=== PATIENT | female | born 1995 | race Two or more races ===

== ENCOUNTER 2018-05-04 14:55 | Emergency (ER) | payer SELFPAY, OTHER | END 2018-05-04 15:31 | disposition home or self-care (01) | LOC: ER 14:55 | DX: S21.201D Unspecified open wound of right back wall of thorax without penetration into thoracic cavity, subsequent encounter (principal); S61.401D Unspecified open wound of right hand, subsequent encounter; W34.00XD Accidental discharge from unspecified firearms or gun, subsequent encounter | CPT/HCPCS: 99283 ==

== ENCOUNTER 2019-03-03 08:13 | Inpatient (IN) | payer OTHER, SELFPAY ==
[~2019-03-03] VITALS: Ht 162.6 cm; Wt 93.9 kg
[~2019-03-03 08:13] MED LIST: CEPH500T PO
[2019-03-03 08:54] VITALS: BP 118/78
[2019-03-03] MEDS ORDERED: MULT-130 PO (08:56)
[2019-03-03] MEDS ORDERED: AMPICILLIN SODIUM 2 GM in IV NORMAL SALINE 100ML 100 ML IV ONE (09:00)
[2019-03-03] MEDS ORDERED: 0.9 % SODIUM CHLORIDE 10 ML DISP.SYRIN. IV PRN ×2 (09:00→12:15)
[2019-03-03] MEDS ORDERED: TERBUTALINE 1 MG/ML VIAL. SQ PRN (09:00)
[2019-03-03] MEDS ORDERED: LIDOCAINE 1% PF 30 ML VIAL. INJ PRN (09:00)
[2019-03-03] MEDS ORDERED: NALBUPHINE 10 MG/ML AMPUL. IV PRN ×2 (09:00→10:00)
[2019-03-03] MEDS ORDERED: fentaNYL PF VIAL 100 MCG/2 ML VIAL IV PRN ×2 (09:00)
[2019-03-03] MEDS ORDERED: ONDANSETRON PF 4 MG/2 ML VIAL. IV PRN ×2 (09:00→10:00)
[2019-03-03] MEDS ORDERED: BUTORPHANOL 2 MG/ML VIAL. IV PRN ×2 (09:00)
[2019-03-03] MEDS ORDERED: OXYTOCIN 30 UNIT/500 ML PREMIX 500 ML IV PRN ×2 (09:00→12:15)
[2019-03-03] MEDS: IV RINGERS,LACTATED 1000ML 1,000 ML IV SCH ×2 (09:07→10:16)
[2019-03-03 09:32] LABS: BASO % 0 % (0-3); EOS % 0 % (0-3); HEMATOCRIT 35.6 % (36.0-47.0); HEMOGLOBIN 11.5 g/dL (12.0-15.5); LYMPH # 1.2 x10^3/uL (1.0-4.8); LYMPH % 11 % (24-48); MEAN CORPUSCULAR HEMOGLOBIN 25 pg (25-35); MEAN CORPUSCULAR HGB CONC 32 g/dL (31-37); MEAN CORPUSCULAR VOLUME 76 fL (79-100); MONO # 0.3 x10^3/uL (0.0-1.1); MONO % 3 % (0-9); NEUT # 9.5 x10^3uL (1.8-7.7); NEUT % 86 % (31-73); PLATELET COUNT 196 x10^3/uL (140-400); RED CELL DISTRIBUTION WIDTH 16.4 % (11.5-14.5)
[2019-03-03] MEDS ORDERED: IV RINGERS,LACTATED 1000ML 1,000 ML IV SCH (09:53)
[2019-03-03] MEDS ORDERED: L&D EPIDURAL SYRINGE 50 ML EPID PRN (10:00)
[2019-03-03] MEDS ORDERED: BUPIVACAINE MPF 0.25% 30 ML VIAL. EPID PRN (10:00)
[2019-03-03] MEDS ORDERED: ROPIVacaine 0.2% IN 0.9%NACL PF 40 MG/20 ML DISP.SYRIN. EPID PRN (10:00)
[2019-03-03] MEDS ORDERED: IV RINGERS,LACTATED 500ML 500 ML IV PRN (10:00)
[2019-03-03] MEDS ORDERED: PROCHLORPERAZINE 10 MG/2 ML VIAL. IV PRN (10:00)
[2019-03-03] MEDS ORDERED: NALOXONE 0.4 MG/ML VIAL. IV PRN (10:00)
[2019-03-03] MEDS ORDERED: ePHEDrine PF IN SALINE 50 MG/10 ML SYRINGE. IV PRN (10:00)
[2019-03-03] MEDS ORDERED: fentaNYL PF VIAL 100 MCG/2 ML VIAL EPI PRN (10:00)
[2019-03-03] MEDS ORDERED: ATROPINE 0.5 MG/5 ML DISP.SYRINGE. IV PRN (10:00)
[2019-03-03] MEDS ORDERED: diphenhydrAMINE 50 MG/ML VIAL IV PRN (10:00)
[2019-03-03] MEDS ORDERED: PHENYLEPHRINE in 0.9% NACL PF 1 MG/10 ML SYRINGE. IV PRN (10:00)
[2019-03-03 11:50] LABS: BILIRUBIN,URINE NEGATIVE (NEG); CLARITY,URINE CLEAR; NITRITE,URINE NEGATIVE (NEG); PROTEIN,URINE 30 mg/dL (NEG-TRACE)
[2019-03-03 11:57] LABS: BARBITURATES NEG (NEG); BENZODIAZEPINES NEG (NEG); COCAINE NEG (NEG); METHADONE NEG (NEG); OPIATES NEG (NEG); PHENCYCLIDINE NEG (NEG)
[2019-03-03 11:58] LABS: AMPHETAMINE/METHAMPHETAMINE NEG (NEG)
[2019-03-03 12:00] LABS: CANNABINOIDS POS (NEG)
[2019-03-03 12:07] LABS: COLOR,URINE YELLOW
[2019-03-03 12:08] LABS: BACTERIA,URINE FEW /HPF (0-FEW); SQUAMOUS EPITHELIAL CELL,UR FEW /LPF
[2019-03-03 12:15] LABS: % BANDS 9 % (0-9); % MONOS 2 % (0-10)
[2019-03-03] MEDS ORDERED: BENZOCAINE 20% TOPICAL AEROSOL SPRAY 57GM CAN. TP PRN (12:15)
[2019-03-03] MEDS ORDERED: oxyCODONE/APAP 5/325 1 TAB TABLET PO PRN (12:15)
[2019-03-03] MEDS ORDERED: diphenhydrAMINE HCL 25 MG CAPSULE PO PRN (12:15)
[2019-03-03] MEDS ORDERED: ACETAMINOPHEN 325 MG TABLET. PO PRN (12:15)
[2019-03-03] MEDS ORDERED: PHENYLEPH/MINERAL OIL/PETROLAT RECTAL OINTMENT 28GM TUBE. RC PRN (12:15)
[2019-03-03] MEDS ORDERED: HYDROCORTISONE 1% TOPICAL OINTMENT 30GM TUBE. TP PRN (12:15)
[2019-03-03] MEDS ORDERED: SIMETHICONE 80 MG TAB.CHEW PO PRN (12:15)
[2019-03-03] MEDS ORDERED: MMR per PROTOCOL. MC PRN (12:15)
[2019-03-03] MEDS ORDERED: ZOLPIDEM 5 MG TABLET. PO PRN (12:15)
[2019-03-03] MEDS ORDERED: MAG HYDROX/ALUMINUM HYD/SIMETH 30 ML ORAL.SUSP PO PRN (12:15)
[2019-03-03 12:16] LABS: % LYMPHS 8 % (24-48); % SEGS 81 % (35-66); PLT ESTIMATE ADEQUATE (ADEQUATE)
[2019-03-03 12:17] LABS: ANISOCYTOSIS SLIGHT; MICROCYTOSIS SLIGHT; POLYCHROMASIA PRESENT
[2019-03-03] MEDS: AMPICILLIN SODIUM 1 GM in IV NORMAL SALINE 50ML 50 ML IV SCH ×2 (12:28→17:00)
--- NOTE | 2019-03-03 13:28 | OP ---
DATE OF SURGERY: 03/03/2019 This patient is a 23-year-old female who is a 2, para 1, 38 weeks' , comes into the hospital with a history of having contractions. At the time of admission to the hospital, cervix dilated to 3 cm, membranes intact, and the patient in active labor. She did make a good progress of labor, had labor epidural block, and then, she got to complete dilatation, had a spontaneous vaginal delivery. A live male was delivered at 12:50 hours on 03/03/2019 with the score of 8, 9 and 9 without any problem. Cord was clamped and cut. Cord blood was taken. Placenta removed spontaneous. No hemorrhage noted. She did receive Pitocin after delivery of the placenta. Estimated blood loss about 100 mL. Small superficial tear in the perineum sutured with 2-0 chromic catgut sutures without any problem. Mother tolerated the delivery well. No complications at this time. Baby is referred to driver license examiner for further care and treatment. CHAVEZ QUEEN MD DR: CALVIN/emily JOB#: [id number] / [id number]
[2019-03-03] MEDS: IBUPROFEN 400 MG TABLET. PO PRN (15:22)
[2019-03-03 15:55] VITALS: BP 102/56
[2019-03-03 16:53] VITALS: BP 93/43
[2019-03-03] MEDS: IBUPROFEN 200 MG TABLET. PO SCH (18:00)
[2019-03-03 19:45] VITALS: BP 98/49
[2019-03-04 05:00] VITALS: BP 106/59
[2019-03-04] MEDS: IBUPROFEN 400 MG TABLET. PO PRN ×2 (05:53→15:38)
[2019-03-04] MEDS: DOCUSATE SODIUM 100 MG CAPSULE. PO PRN (05:53)
[2019-03-04] MEDS: IBUPROFEN 200 MG TABLET. PO SCH ×2 (06:00)
[2019-03-04] MEDS ORDERED: FERROUS SULFATE 325 MG TABLET. PO SCH (08:00)
--- NOTE | 2019-03-04 10:39 | PDOC ---
GENERAL General: Vital signs stable Doing ok. VITAL SIGNS Vital Signs: Vital Signs Date Time Temp Pulse Resp B/P (MAP) Pulse Ox O2 Delivery O2 Flow Rate FiO2 03/04/19 05:00 97.5 78 106/59 (75) 99 Room Air 97.5 03/03/19 19:45 16 I & O I & O Intake and Output 03/04/19 07:00 Intake Total 800 ml Balance 800 ml Intake Oral 800 ml Tube Feeding 0 ml # Voids 2 ALLERGIES Allergies: Allergies Coded Allergies Type Severity Reaction Last Updated Verified No Known Drug Allergies 02/12/14 No MEDS Medications: Current Medications Medications (Trade) Dose Ordered Sig/Elvis Start Time Stop Time Status Last Admin Dose Admin Acetaminophen (Tylenol) 650 mg PRN Q6HRS PRN 03/03/19 12:15 Al Hydroxide/Mg Hydroxide (Mylanta Plus Xs) 30 ml PRN Q4HRS PRN 03/03/19 12:15 Ampicillin Sodium 1 gm/Sodium Chloride 50 ml @ 100 mls/hr Q4H 03/03/19 13:00 03/03/19 19:12 DC 03/03/19 12:28 100 MLS/HR Ampicillin Sodium 2 gm/Sodium Chloride 100 ml @ 200 mls/hr 1X ONCE 03/03/19 09:00 03/03/19 19:12 DC 03/03/19 09:19 200 MLS/HR Atropine Sulfate (ATROPINE 0.5mg SYRINGE) 0.4 mg PRN Q2MIN PRN 03/03/19 10:00 Benzocaine (Americaine) 1 spray PRN QID PRN 03/03/19 12:15 Bupivacaine HCl (Sensorcaine Mpf 0.25%) 10 ml PRN 1X PRN 03/03/19 10:00 03/04/19 09:59 DC Butorphanol Tartrate (Stadol) 2 mg PRN Q1HR PRN 03/03/19 09:00 Diphenhydramine HCl (Benadryl) 25 mg PRN Q6HRS PRN 03/03/19 12:15 Docusate Sodium (Colace) 100 mg PRN BID PRN 03/03/19 12:15 03/04/19 05:53 100 MG Ephedrine Sulfate (ePHEDrine PF IN SALINE SYRINGE) 10 mg PRN Q2MIN PRN 03/03/19 10:00 Fentanyl Citrate (Fentanyl 2ml Vial) 100 mcg PRN 1X PRN 03/03/19 10:00 03/04/19 09:59 DC Ferrous Sulfate (Feosol) 325 mg BIDWMEALS 03/04/19 08:00 Hydrocortisone (Cortaid) 1 lili PRN QID PRN 03/03/19 12:15 Ibuprofen (Motrin) 600 mg Q6HRS 03/03/19 18:00 Info (Do NOT chart on this placeholder) 1 ea 1X PRN PRN 03/03/19 12:15 Lidocaine HCl (Xylocaine 1% Pf 30ml Vial) 30 ml 1X PRN PRN 03/03/19 09:00 03/05/19 08:59 Magnesium Hydroxide (Milk Of Magnesia) 2,400 mg PRN DAILY PRN 03/03/19 12:15 Nalbuphine HCl (Nubain) 2.5 mg PRN Q2HR PRN 03/03/19 10:00 Naloxone HCl (Narcan) 0.04 mg PRN Q1MIN PRN 03/03/19 10:00 Ondansetron HCl (Zofran) 4 mg PRN Q6HRS PRN 03/03/19 10:00 Cancel Oxycodone/ Acetaminophen (Percocet 5/325) 2 tab PRN Q4HRS PRN 03/03/19 12:15 Oxytocin/Sodium Chloride 500 ml @ 62.5 mls/hr CONT PRN 03/03/19 12:15 03/03/19 20:14 DC 03/03/19 12:16 62.5 MLS/HR Phenyleph/Shark Oil/Min Oil/Petrol (Preparation H) 1 lili PRN QID PRN 03/03/19 12:15 Phenylephrine HCl (PHENYLEPHRINE in 0.9% NACL PF) 0.05 mg PRN Q2MIN PRN 03/03/19 10:00 Prochlorperazine Edisylate (Compazine) 5 mg PRN Q6HRS PRN 03/03/19 10:00 Ringer's Solution 500 ml @ 500 mls/hr 1X PRN PRN 03/03/19 10:00 03/04/19 09:59 DC Ropivacaine/ Fentanyl/NS 50 ml @ 14 mls/hr CONT PRN 03/03/19 10:00 03/03/19 10:25 14 MLS/HR Ropivacaine/ Sodium Chloride (ROPIVacaine 0.2% - 0.9%NACL PF) 40 mg 1X PRN PRN 03/03/19 10:00 03/04/19 09:53 DC Simethicone (Gas-X) 80 mg PRN AFTMEALHC PRN 03/03/19 12:15 Sodium Chloride (Normal Saline Flush) 10 ml QSHIFT PRN 03/03/19 12:15 Terbutaline Sulfate (Brethine) 0.25 mg 1X PRN PRN 03/03/19 09:00 03/04/19 08:59 DC Zolpidem Tartrate (Ambien) 5 mg PRN QHS PRN 03/03/19 12:15 LAB Lab: Laboratory Tests Test 03/03/19 11:35 03/04/19 06:11 Urine Collection Type U cath Urine Color Yellow Urine Clarity Clear Urine pH 7.0 Urine Specific [place] 1.025 Urine Protein 30 mg/dL (NEG-TRACE) Urine Glucose (UA) Negative mg/dL (NEG) Urine Ketones (Stick) >=80 mg/dL (NEG) Urine Blood Negative (NEG) Urine Nitrite Negative (NEG) Urine Bilirubin Negative (NEG) Urine Urobilinogen Dipstick 1.0 mg/dL (0.2 mg/dL) Urine Leukocyte Esterase Negative (NEG) Urine RBC 1-2 /HPF (0-2) Urine WBC 1-4 /HPF (0-4) Urine Squamous Epithelial Cells Few /LPF Urine Bacteria Few /HPF (0-FEW) Urine Mucus Marked /LPF Urine Opiates Screen Neg (NEG) Urine Methadone Screen Neg (NEG) Urine Barbiturates Neg (NEG) Urine Phencyclidine Screen Neg (NEG) Urine Amphetamine/Methamphetamine Neg (NEG) Urine Benzodiazepines Screen Neg (NEG) Urine Cocaine Screen Neg (NEG) Urine Cannabinoids Screen Pos (NEG) Urine Ethyl Alcohol Neg (NEG) Hematocrit 30.3 % (36.0-47.0) ASSESSMENT & PLAN A&P Plan dismissal in AM. Mom bottle feeding the Baby. CHAVEZ QUEEN MD March 04, 2019 10:39
[2019-03-04 11:10] VITALS: BP 101/62
[2019-03-04] MEDS: MAGNESIUM HYDROXIDE 2,400 MG/30 ML ORAL.SUSP. PO PRN (12:23)
[2019-03-04 16:38] VITALS: BP 107/73
[2019-03-04 22:21] VITALS: BP 103/69
[2019-03-05] MEDS: DOCUSATE SODIUM 100 MG CAPSULE. PO PRN (06:07)
[2019-03-05] MEDS: MAGNESIUM HYDROXIDE 2,400 MG/30 ML ORAL.SUSP. PO PRN (06:07)
[2019-03-05] MEDS: IBUPROFEN 400 MG TABLET. PO PRN (06:08)
[2019-03-05 06:12] VITALS: BP 102/68
--- NOTE | 2019-03-05 10:49 | PDOC ---
GENERAL General: Patient doing well Likes to go home VITAL SIGNS Vital Signs: Vital Signs Date Time Temp Pulse Resp B/P (MAP) Pulse Ox O2 Delivery O2 Flow Rate FiO2 03/05/19 06:12 97.7 60 18 102/68 (79) 97 Room Air 97.7 I & O I & O Intake and Output 03/05/19 07:00 Intake Total 1200 ml Balance 1200 ml Intake Oral 1200 ml # Voids 6 ALLERGIES Allergies: Allergies Coded Allergies Type Severity Reaction Last Updated Verified No Known Drug Allergies 02/12/14 No MEDS Medications: Current Medications Medications (Trade) Dose Ordered Sig/Elvis Start Time Stop Time Status Last Admin Dose Admin Acetaminophen (Tylenol) 650 mg PRN Q6HRS PRN 03/03/19 12:15 Al Hydroxide/Mg Hydroxide (Mylanta Plus Xs) 30 ml PRN Q4HRS PRN 03/03/19 12:15 Ampicillin Sodium 1 gm/Sodium Chloride 50 ml @ 100 mls/hr Q4H 03/03/19 13:00 03/03/19 19:12 DC 03/03/19 12:28 100 MLS/HR Ampicillin Sodium 2 gm/Sodium Chloride 100 ml @ 200 mls/hr 1X ONCE 03/03/19 09:00 03/03/19 19:12 DC 03/03/19 09:19 200 MLS/HR Atropine Sulfate (ATROPINE 0.5mg SYRINGE) 0.4 mg PRN Q2MIN PRN 03/03/19 10:00 03/04/19 12:07 DC Benzocaine (Americaine) 1 spray PRN QID PRN 03/03/19 12:15 Bupivacaine HCl (Sensorcaine Mpf 0.25%) 10 ml PRN 1X PRN 03/03/19 10:00 03/04/19 09:59 DC Butorphanol Tartrate (Stadol) 2 mg PRN Q1HR PRN 03/03/19 09:00 03/04/19 12:07 DC Diphenhydramine HCl (Benadryl) 25 mg PRN Q6HRS PRN 03/03/19 12:15 Docusate Sodium (Colace) 100 mg PRN BID PRN 03/03/19 12:15 03/05/19 06:07 100 MG Ephedrine Sulfate (ePHEDrine PF IN SALINE SYRINGE) 10 mg PRN Q2MIN PRN 03/03/19 10:00 03/04/19 12:07 DC Fentanyl Citrate (Fentanyl 2ml Vial) 100 mcg PRN 1X PRN 03/03/19 10:00 03/04/19 09:59 DC Ferrous Sulfate (Feosol) 325 mg BIDWMEALS 03/04/19 08:00 03/04/19 12:07 DC Hydrocortisone (Cortaid) 1 lili PRN QID PRN 03/03/19 12:15 Ibuprofen (Motrin) 600 mg Q6HRS 03/03/19 18:00 Info (Do NOT chart on this placeholder) 1 ea 1X PRN PRN 03/03/19 12:15 03/04/19 12:07 DC Lidocaine HCl (Xylocaine 1% Pf 30ml Vial) 30 ml 1X PRN PRN 03/03/19 09:00 03/04/19 12:07 DC Magnesium Hydroxide (Milk Of Magnesia) 2,400 mg PRN DAILY PRN 03/03/19 12:15 03/05/19 06:07 2,400 MG Nalbuphine HCl (Nubain) 2.5 mg PRN Q2HR PRN 03/03/19 10:00 03/04/19 12:07 DC Naloxone HCl (Narcan) 0.04 mg PRN Q1MIN PRN 03/03/19 10:00 03/04/19 12:07 DC Ondansetron HCl (Zofran) 4 mg PRN Q6HRS PRN 03/03/19 10:00 Cancel Oxycodone/ Acetaminophen (Percocet 5/325) 2 tab PRN Q4HRS PRN 03/03/19 12:15 Oxytocin/Sodium Chloride 500 ml @ 62.5 mls/hr CONT PRN 03/03/19 12:15 03/03/19 20:14 DC 03/03/19 12:16 62.5 MLS/HR Phenyleph/Shark Oil/Min Oil/Petrol (Preparation H) 1 lili PRN QID PRN 03/03/19 12:15 Phenylephrine HCl (PHENYLEPHRINE in 0.9% NACL PF) 0.05 mg PRN Q2MIN PRN 03/03/19 10:00 03/04/19 12:07 DC Prochlorperazine Edisylate (Compazine) 5 mg PRN Q6HRS PRN 03/03/19 10:00 03/04/19 12:07 DC Ringer's Solution 500 ml @ 500 mls/hr 1X PRN PRN 03/03/19 10:00 03/04/19 09:59 DC Ropivacaine/ Fentanyl/NS 50 ml @ 14 mls/hr CONT PRN 03/03/19 10:00 03/04/19 12:07 DC 03/03/19 10:25 14 MLS/HR Ropivacaine/ Sodium Chloride (ROPIVacaine 0.2% - 0.9%NACL PF) 40 mg 1X PRN PRN 03/03/19 10:00 03/04/19 09:53 DC Simethicone (Gas-X) 80 mg PRN AFTMEALHC PRN 03/03/19 12:15 Sodium Chloride (Normal Saline Flush) 10 ml QSHIFT PRN 03/03/19 12:15 03/04/19 12:07 DC Terbutaline Sulfate (Brethine) 0.25 mg 1X PRN PRN 03/03/19 09:00 03/04/19 08:59 DC Zolpidem Tartrate (Ambien) 5 mg PRN QHS PRN 03/03/19 12:15 ASSESSMENT & PLAN A&P Patient can go home Return to office in 6 weeks. CHAVEZ QUEEN MD March 05, 2019 10:49
[2019-03-05 11:12] VITALS: BP 109/65
--- NOTE | 2019-03-05 11:40 | NUR ---
Discharge Note: Pt. denies questions or needs at this time. Pt. and significant other educated on car seat strap tightening, demonstrated proper use. Pt. and family escorted by Charlotte Monroy RN to vehicle with NB in car seat and belongings present. NB on car seat base in back seat of vehicle, rear facing. Pt. discharged home with family and NB. Charlotte Monroy RN
--- NOTE | 2019-03-07 18:11 | HP ---
ADMIT DATE: CHIEF COMPLAINT AND HISTORY OF PRESENT ILLNESS: This patient is a 23-year-old female who is 2, para 1, 38 weeks' . The patient came in labor to [facility] with a history of having contractions and her cervix was dilated 3 cm on admission to the hospital. OBJECTIVE: VITAL SIGNS: Stable. heart tones are 140 per minute and having contractions. PELVIC: Showed cervix 3 cm dilated, membranes bulging and she did get into complete dilatation fast and had a spontaneous vaginal delivery at 1250 hours on 03/03/2019 with the scores of 8, 9, and 9 without any problem and she had an uneventful course in the hospital. DIAGNOSES: 2, para 1, 38-week . PLAN: Vaginal delivery. CHAVEZ QUEEN MD DR: CALVIN/emily JOB#: [id number] / [id number]
== END 2019-03-05 11:40 | disposition home or self-care (01) | DRG 807 ==
LOC: UNDOADMIN 08:13 → 3 SO LND 08:13 → UNDOADMIN 09:03 → 3 NORTH 15:44 → 3 SO LND 15:44 → UNDODISIN 03-05 11:40
PROVIDERS: ADMIT Obstetrics & Gynecology; ATTEND Obstetrics & Gynecology
PROC: 10E0XZZ Delivery of Products of Conception, External Approach (ICD-10-PCS; principal; 2019-03-03)
PROC: 0HQ9XZZ Repair Perineum Skin, External Approach (ICD-10-PCS; 2019-03-03)
PROC: 3E0R3BZ Introduction of Anesthetic Agent into Spinal Canal, Percutaneous Approach (ICD-10-PCS; 2019-03-03)
PROC: 00HU33Z Insertion of Infusion Device into Spinal Canal, Percutaneous Approach (ICD-10-PCS; 2019-03-03)
DX: O70.0 First degree perineal laceration during delivery (principal); Z37.0 Single live birth; Z3A.38 38 weeks gestation of pregnancy
CPT/HCPCS: 36415; 80307; 81001; 85007; 85014; 85025; 86592; 86703; 86762; 86850; 86900; 86901; 87070; 87340; 87653; J0290; J2405; J2590; J3010; J7120

== ENCOUNTER → 2020-02-18 | Outpatient (CLI) | payer OTHER ==
[~2020-02-18] MED LIST changes: +MULT-130 PO
--- NOTE | 2020-02-18 15:50 | RAD ---
EXAM: OBSTETRIC ULTRASOUND. HISTORY: Size/date discrepancy. COMPARISON: None. FINDINGS: Sonographic evaluation of the uterus, fetus and maternal pelvis was performed. There is a single fetus in vertex presentation. heart rate is 137 bpm. Estimated gestational age based on measurements is 28 weeks 6 days. Head circumference, biparietal diameter, abdominal circumference and femur length are commensurate. Estimated weight is 1263 g, at 60th percentile. The placenta is anterior. There is no evidence of placenta previa. Amniotic fluid volume appears normal with amniotic fluid index 10.5 cm. The cervix is closed and measures 4.7 cm. The cord is three-vessel. The heart is four-chamber on real-time scanning, less well demonstrated on static images. The left ventricular outflow tract is visualized. The stomach and bladder are visualized. Images of the kidneys reveal no hydronephrosis. Intracranial images demonstrate no hydrocephalus. The posterior fossa appears normal. The diaphragm is complete. Images of the spine reveal no clear defects. The cord insertion appears normal. Nose/lip morphology appears normal. The maternal adnexa are obscured by positioning currently. IMPRESSION: 1. Single fetus in vertex presentation. heart rate 137 bpm. Estimated gestational age based on measurements 28 weeks 6 days, estimated weight 1263 g, at 63rd percentile. Electronically signed by: Conner Steve MD (02/18/2020 3:47 PM) [id number]
== END | disposition home or self-care (01) ==
LOC: US 14:25
PROVIDERS: ATTEND Obstetrics & Gynecology
DX: O32.8XX1 Maternal care for other malpresentation of fetus, fetus 1 (principal); O26.843 Uterine size-date discrepancy, third trimester; Z3A.28 28 weeks gestation of pregnancy
CPT/HCPCS: 76805

== ENCOUNTER 2020-03-31 13:29 | Observation (INO) | payer OTHER ==
[~2020-03-31] VITALS: Ht 157.5 cm; Wt 93.9 kg
[2020-03-31 14:24] LABS: BILIRUBIN,URINE NEGATIVE (NEG); CLARITY,URINE CLEAR; COLOR,URINE YELLOW; NITRITE,URINE NEGATIVE (NEG); PH,URINE 7.5 (<5.0-8.0); PROTEIN,URINE NEGATIVE (NEG-TRACE); UROBILINOGEN,URINE 0.2 mg/dL (0.2 mg/dL)
[2020-03-31 14:33] LABS: AMNIO PT NEGATIVE
[2020-03-31 14:37] LABS: BACTERIA,URINE FEW /HPF (0-FEW); RBC,URINE OCC /HPF (0-2); SQUAMOUS EPITHELIAL CELL,UR MOD /LPF
== END 2020-03-31 15:05 | disposition home or self-care (01) ==
LOC: 3 SO LND 13:29
PROVIDERS: ADMIT Obstetrics & Gynecology; ATTEND Obstetrics & Gynecology
DX: O42.913 Preterm premature rupture of membranes, unspecified as to length of time between rupture and onset of labor, third trimester (principal); Z3A.33 33 weeks gestation of pregnancy
CPT/HCPCS: 36415; 81001; 84112; 87086; G0378; G0379

== ENCOUNTER 2020-05-06 06:24 | Inpatient (IN) | payer OTHER ==
[~2020-05-06] VITALS: Ht 157.5 cm; Wt 96.6 kg
[2020-05-06] MEDS ORDERED: IV RINGERS,LACTATED 1000ML 1,000 ML IV SCH ×3 (06:45→09:20)
[2020-05-06] MEDS ORDERED: ACETAMINOPHEN 325 MG TABLET. PO PRN ×2 (06:45→09:45)
[2020-05-06 06:47] VITALS: BP 111/70
[2020-05-06 07:07] LABS: BILIRUBIN,URINE NEGATIVE (NEG); CLARITY,URINE CLEAR; COLOR,URINE YELLOW; NITRITE,URINE NEGATIVE (NEG); PH,URINE 8.5 (<5.0-8.0); PROTEIN,URINE NEGATIVE (NEG-TRACE)
[2020-05-06 07:15] LABS: BARBITURATES NEG (NEG); BENZODIAZEPINES NEG (NEG); CANNABINOIDS POS (NEG); COCAINE NEG (NEG); METHADONE NEG (NEG); OPIATES NEG (NEG); PHENCYCLIDINE NEG (NEG)
[2020-05-06 07:18] LABS: AMPHETAMINE/METHAMPHETAMINE NEG (NEG)
[2020-05-06 07:27] LABS: RBC,URINE OCC /HPF (0-2)
[2020-05-06 07:28] LABS: AMORPHOUS SEDIMENT,UR PRESENT /HPF; BACTERIA,URINE MANY /HPF (0-FEW); SQUAMOUS EPITHELIAL CELL,UR MANY /LPF
[2020-05-06] MEDS ORDERED: fentaNYL PF VIAL 100 MCG/2 ML VIAL IVP PRN (07:45)
[2020-05-06] MEDS ORDERED: TERBUTALINE 1 MG/ML VIAL. SQ PRN (07:45)
[2020-05-06] MEDS ORDERED: IBUPROFEN 400 MG TABLET. PO PRN (07:45)
[2020-05-06] MEDS ORDERED: OXYTOCIN 30 UNIT/500 ML PREMIX 500 ML IV PRN ×3 (07:45→09:45)
[2020-05-06] MEDS ORDERED: 0.9 % SODIUM CHLORIDE 10 ML DISP.SYRIN. IV PRN ×2 (07:45→09:45)
[2020-05-06] MEDS ORDERED: BUTORPHANOL 2 MG/ML VIAL. IVP PRN ×2 (07:45)
[2020-05-06] MEDS ORDERED: LIDOCAINE 1% PF 30 ML VIAL. INJ PRN (07:45)
[2020-05-06 08:00] LABS: BASO # 0.1 x10^3/uL (0.0-0.2); BASO % 1 % (0-3); EOS % 0 % (0-3); HEMOGLOBIN 11.7 g/dL (12.0-15.5); LYMPH # 1.5 x10^3/uL (1.0-4.8); LYMPH % 13 % (24-48); MEAN CORPUSCULAR HEMOGLOBIN 24 pg (25-35); MEAN CORPUSCULAR HGB CONC 33 g/dL (31-37); MEAN CORPUSCULAR VOLUME 74 fL (79-100); MONO # 0.5 x10^3/uL (0.0-1.1); MONO % 5 % (0-9); NEUT # 9.1 x10^3/uL (1.8-7.7); NEUT % 82 % (31-73); PLATELET COUNT 195 x10^3/uL (140-400); RED BLOOD COUNT 4.84 x10^6/uL (3.50-5.40); RED CELL DISTRIBUTION WIDTH 16.3 % (11.5-14.5); WHITE BLOOD COUNT 11.1 x10^3/uL (4.0-11.0)
[2020-05-06] MEDS ORDERED: PENICILLIN G K 5,000,000 UNIT in IV DEXTROSE 5% 100ML 100 ML IV ONE (08:00)
[2020-05-06] MEDS ORDERED: LIDOCAINE 2% PF 5 ML VIAL. ONE (08:18)
[2020-05-06] MEDS ORDERED: L&D EPIDURAL SYRINGE 50 ML ONE (08:23)
[2020-05-06] MEDS ORDERED: L&D EPIDURAL 50 ML SYRINGE. ONE (09:00)
[2020-05-06] MEDS ORDERED: NALOXONE 0.4 MG/ML VIAL. IV PRN (09:30)
--- NOTE | 2020-05-06 09:34 | PDOC1 ---
OB - History Hx of Present Care: Good Care Ultrasounds: Normal mid trimester US Obstetrical Complications: None Medical Complications: None Past Family/Social History * Past Medical, Surgical, Family and Obstetric Histories reviewed from chart. Rubella: Immune RPR/VDRL: Negative GBS Status: Unknown HBsAG: Negative OB - Chief Complaint & HPI Date of Admission: Date of Admission: May 06, 2020 at 06:24 Chief Complaint/History : 3 Para: 2 EGA: 38 Reason for admission: active labor Admission Nurse Assessment Rev: Yes OB - Admission Exam Physical Exam HEENT: Normal Heart: Regular Rate Lungs: Clear Abdomen: Gravid, Non tender, Soft Extremities: Edema Reflexes: Normal Cervical Dilatation: 3cm Effacement: 75% Station: -2 Membranes: Intact Heart Rate: Normal Accelerations: Accelerations Present Decelerations: No decelerations Contractions on Admission: < 5 Minutes Apart Intensity: Moderate Text A: 38 wks IUP Active labor GBS unknown P: Admit active labor management. Start Pen G prophylaxis. ROHIT DE JESUS Jr, MD May 06, 2020 09:34
--- NOTE | 2020-05-06 09:36 | PDOC ---
VAGINAL DELIVERY DATE DATE: 05/06/20 TIME: 09:34 : 3 Para: 3 EGA: 38 VAGINAL DELIVERY: VTX VACCUM ASSISTED: No PLACENTA: Spontaneous 8/9 SEX: Female WEIGHT Weight [ 7 lbs. 3 oz] Nuchal Cord: No Amniotic Fluid: Clear PAIN: Epidural EPISIOTOMY: No EXTENSION: Yes (2nd degree midline laceration) REPAIRED WITH 2-0 vicryl EBL 300 ml COMPLICATIONS none CONDITION pt. stable Signs of Intrauterine Infectio: None Shoulder Dystocia: No ROHIT DE JESUS Jr, MD May 06, 2020 09:36
[2020-05-06] MEDS ORDERED: SIMETHICONE 80 MG TAB.CHEW PO PRN (09:45)
[2020-05-06] MEDS ORDERED: MAG HYDROX/ALUMINUM HYD/SIMETH 30 ML ORAL.SUSP PO PRN (09:45)
[2020-05-06] MEDS ORDERED: oxyCODONE/APAP 5/325 1 TAB TABLET PO PRN (09:45)
[2020-05-06] MEDS ORDERED: MMR per PROTOCOL. MC PRN (09:45)
[2020-05-06] MEDS ORDERED: ZOLPIDEM 5 MG TABLET. PO PRN (09:45)
[2020-05-06] MEDS ORDERED: TDaP (Adacel) per PROTOCOL. MC PRN (09:45)
[2020-05-06] MEDS ORDERED: MAGNESIUM HYDROXIDE 2,400 MG/30 ML ORAL.SUSP. PO PRN (09:45)
[2020-05-06] MEDS ORDERED: BENZOCAINE 20% TOPICAL AEROSOL SPRAY 57GM CAN. TP PRN (09:45)
[2020-05-06] MEDS ORDERED: HYDROCORTISONE 1% TOPICAL OINTMENT 30GM TUBE. TP PRN (09:45)
[2020-05-06] MEDS ORDERED: diphenhydrAMINE HCL 25 MG CAPSULE PO PRN (09:45)
[2020-05-06] MEDS ORDERED: PHENYLEPH/MINERAL OIL/PETROLAT RECTAL OINTMENT TUBE. RC PRN (09:45)
[2020-05-06] MEDS ORDERED: PENICILLIN G K 2,500,000 UNIT in IV DEXTROSE 5% 50 ML IV SCH (12:00)
[2020-05-06] MEDS: IBUPROFEN 400 MG TABLET. PO PRN ×2 (12:06→20:07)
[2020-05-06 12:20] VITALS: BP 121/69
[2020-05-06 13:20] VITALS: BP 103/50
--- NOTE | 2020-05-06 15:18 | NUR ---
SS following up with referral regarding "mother positive for THC at delivery." SS discussed with infant RN. Mother UDS positive for THC. RN reported that mother had limited care. Mother has Medicaid. SS met with mother to assess the circumstances surrounding the referral. Mother reported that she lives with her mother and family. She reported having two other children in the home. Mother denied any DCF or behavioral health history. Mother reported that she was late to find care. She reported having good family support. Mother reported that she works at [employer] and family and infant father will assist with watching infant while she is at work. Mother reported having good transportation. Mother reported that she has WIC and will make an appointment for . She reported that she plans to formula feed infant. Mother reported that will see Dr. Clinton at [facility]. She reported having carseat and all needed supplies for . DCF hotline report made for positive THC and limited care. Intake#[id number]. Infant RN notified.
[2020-05-06 18:06] VITALS: BP 111/64
[2020-05-06 22:29] VITALS: BP 97/60
[2020-05-07 02:32] VITALS: BP 115/58
[2020-05-07 05:34] LABS: BASO % 0 % (0-3); EOS # 0.1 x10^3/uL (0.0-0.7); EOS % 1 % (0-3); HEMATOCRIT 30.7 % (36.0-47.0); LYMPH % 33 % (24-48); MEAN CORPUSCULAR HEMOGLOBIN 24 pg (25-35); MEAN CORPUSCULAR HGB CONC 32 g/dL (31-37); MEAN CORPUSCULAR VOLUME 75 fL (79-100); MONO # 0.7 x10^3/uL (0.0-1.1); MONO % 7 % (0-9); NEUT # 5.4 x10^3/uL (1.8-7.7); NEUT % 58 % (31-73); PLATELET COUNT 173 x10^3/uL (140-400); RED BLOOD COUNT 4.08 x10^6/uL (3.50-5.40); RED CELL DISTRIBUTION WIDTH 16.4 % (11.5-14.5); WHITE BLOOD COUNT 9.3 x10^3/uL (4.0-11.0)
--- NOTE | 2020-05-07 07:25 | PDOC ---
OB Progress Note Date of Service 05/07/20 Time of Evaluation 0720 Notes Pt. feeling well. No complaints. Lab Laboratory Tests Test 05/06/20 06:40 05/06/20 07:50 05/06/20 11:55 05/07/20 04:30 Urine Collection Type Unknown Urine Color Yellow Urine Clarity Clear Urine pH 8.5 (<5.0-8.0) Urine Specific [place] 1.015 (1.000-1.030) Urine Protein Negative mg/dL (NEG-TRACE) Urine Glucose (UA) Negative mg/dL (NEG) Urine Ketones (Stick) Trace mg/dL (NEG) Urine Blood Small (NEG) Urine Nitrite Negative (NEG) Urine Bilirubin Negative (NEG) Urine Urobilinogen Dipstick 1.0 mg/dL (0.2 mg/dL) Urine Leukocyte Esterase Small (NEG) Urine RBC Occ /HPF (0-2) Urine WBC 5-10 /HPF (0-4) Urine Squamous Epithelial Cells Many /LPF Urine Transitional Epithelial Cells Occ /LPF Urine Amorphous Sediment Present /HPF Urine Bacteria Many /HPF (0-FEW) Urine Opiates Screen Neg (NEG) Urine Methadone Screen Neg (NEG) Urine Barbiturates Neg (NEG) Urine Phencyclidine Screen Neg (NEG) Urine Amphetamine/Methamphetamine Neg (NEG) Urine Benzodiazepines Screen Neg (NEG) Urine Cocaine Screen Neg (NEG) Urine Cannabinoids Screen Pos (NEG) Urine Ethyl Alcohol Neg (NEG) White Blood Count 11.1 x10^3/uL (4.0-11.0) 9.3 x10^3/uL (4.0-11.0) Red Blood Count 4.84 x10^6/uL (3.50-5.40) 4.08 x10^6/uL (3.50-5.40) Hemoglobin 11.7 g/dL (12.0-15.5) 10.0 g/dL (12.0-15.5) Hematocrit 36.0 % (36.0-47.0) 30.7 % (36.0-47.0) Mean Corpuscular Volume 74 fL (79-100) 75 fL (79-100) Mean Corpuscular Hemoglobin 24 pg (25-35) 24 pg (25-35) Mean Corpuscular Hemoglobin Concent 33 g/dL (31-37) 32 g/dL (31-37) Red Cell Distribution Width 16.3 % (11.5-14.5) 16.4 % (11.5-14.5) Platelet Count 195 x10^3/uL (140-400) 173 x10^3/uL (140-400) Neutrophils (%) (Auto) 82 % (31-73) 58 % (31-73) Lymphocytes (%) (Auto) 13 % (24-48) 33 % (24-48) Monocytes (%) (Auto) 5 % (0-9) 7 % (0-9) Eosinophils (%) (Auto) 0 % (0-3) 1 % (0-3) Basophils (%) (Auto) 1 % (0-3) 0 % (0-3) Neutrophils # (Auto) 9.1 x10^3/uL (1.8-7.7) 5.4 x10^3/uL (1.8-7.7) Lymphocytes # (Auto) 1.5 x10^3/uL (1.0-4.8) 3.0 x10^3/uL (1.0-4.8) Monocytes # (Auto) 0.5 x10^3/uL (0.0-1.1) 0.7 x10^3/uL (0.0-1.1) Eosinophils # (Auto) 0.0 x10^3/uL (0.0-0.7) 0.1 x10^3/uL (0.0-0.7) Basophils # (Auto) 0.1 x10^3/uL (0.0-0.2) 0.0 x10^3/uL (0.0-0.2) Treponema pallidum Antibody Nonreactive (Nonreactive) SARS-CoV-2 Antigen (Rapid) Negative (NEGATIVE) Laboratory Tests Test 05/06/20 07:50 05/06/20 11:55 05/07/20 04:30 White Blood Count 11.1 x10^3/uL (4.0-11.0) 9.3 x10^3/uL (4.0-11.0) Red Blood Count 4.84 x10^6/uL (3.50-5.40) 4.08 x10^6/uL (3.50-5.40) Hemoglobin 11.7 g/dL (12.0-15.5) 10.0 g/dL (12.0-15.5) Hematocrit 36.0 % (36.0-47.0) 30.7 % (36.0-47.0) Mean Corpuscular Volume 74 fL (79-100) 75 fL (79-100) Mean Corpuscular Hemoglobin 24 pg (25-35) 24 pg (25-35) Mean Corpuscular Hemoglobin Concent 33 g/dL (31-37) 32 g/dL (31-37) Red Cell Distribution Width 16.3 % (11.5-14.5) 16.4 % (11.5-14.5) Platelet Count 195 x10^3/uL (140-400) 173 x10^3/uL (140-400) Neutrophils (%) (Auto) 82 % (31-73) 58 % (31-73) Lymphocytes (%) (Auto) 13 % (24-48) 33 % (24-48) Monocytes (%) (Auto) 5 % (0-9) 7 % (0-9) Eosinophils (%) (Auto) 0 % (0-3) 1 % (0-3) Basophils (%) (Auto) 1 % (0-3) 0 % (0-3) Neutrophils # (Auto) 9.1 x10^3/uL (1.8-7.7) 5.4 x10^3/uL (1.8-7.7) Lymphocytes # (Auto) 1.5 x10^3/uL (1.0-4.8) 3.0 x10^3/uL (1.0-4.8) Monocytes # (Auto) 0.5 x10^3/uL (0.0-1.1) 0.7 x10^3/uL (0.0-1.1) Eosinophils # (Auto) 0.0 x10^3/uL (0.0-0.7) 0.1 x10^3/uL (0.0-0.7) Basophils # (Auto) 0.1 x10^3/uL (0.0-0.2) 0.0 x10^3/uL (0.0-0.2) Treponema pallidum Antibody Nonreactive (Nonreactive) SARS-CoV-2 Antigen (Rapid) Negative (NEGATIVE) Medications Current Medications Ringer's Solution 1,000 ml @ 125 mls/hr Q8H IV Last administered on 05/06/20at 08:13; Start 05/06/20 at 06:45 Acetaminophen (Tylenol) 1,000 mg PRN Q6HRS PRN PO PAIN, TEMP > 100.5'F; Start 05/06/20 at 06:45; Stop 05/06/20 at 09:44; Status DC Sodium Chloride (Normal Saline Flush) 3 ml QSHIFT PRN IV AFTER MEDS AND BLOOD DRAWS; Start 05/06/20 at 07:45 Ringer's Solution 1,000 ml @ 125 mls/hr Q8H IV ; Start 05/06/20 at 07:32 Butorphanol Tartrate (Stadol) 1 mg PRN Q1HR PRN IVP mild to moderate labor pa in; Start 05/06/20 at 07:45 Butorphanol Tartrate (Stadol) 2 mg PRN Q1HR PRN IVP Severe labor pain; Start 05/06/20 at 07:45 Fentanyl Citrate (Fentanyl 2ml Vial) 100 mcg PRN Q30MIN PRN IVP Severe pain; Start 05/06/20 at 07:45 Terbutaline Sulfate (Brethine) 0.25 mg 1X PRN PRN SQ SEE COMMENTS; Start 05/06/20 at 07:45; Stop 05/07/20 at 07:44 Lidocaine HCl (Xylocaine 1% Pf 30ml Vial) 30 ml 1X PRN PRN INJ SEE COMMENTS Last administered on 05/06/20at 12:05; Start 05/06/20 at 07:45; Stop 05/08/20 at 07:44 Oxytocin/Sodium Chloride 500 ml @ 0 mls/hr CONT PRN IV SEE I/O RECORD Last administered on 05/06/20at 12:05; Start 05/06/20 at 07:45 Oxytocin/Sodium Chloride 500 ml @ 0 mls/hr CONT PRN PRN IV Post delivery bleeding; Start 05/06/20 at 07:45 Ibuprofen (Motrin) 800 mg PRN Q6HRS PRN PO MODERATE PAIN; Start 05/06/20 at 07:45; Stop 05/06/20 at 09:45; Status DC Penicillin G Potassium 0330123 unit/Dextrose 100 ml @ 100 mls/hr 1X ONCE IV Last administered on 05/06/20at 08:14; Start 05/06/20 at 08:00; Stop 05/06/20 at 08:59; Status DC Penicillin G Potassium [id number] unit/Dextrose 50 ml @ 100 mls/hr Q4H IV ; Start 05/06/20 at 12:00 Lidocaine HCl (Lidocaine Pf 2% Vial) 5 ml STK-MED ONCE .ROUTE ; Start 05/06/20 at 08:18; Stop 05/06/20 at 08:19; Status DC Fentanyl Citrate 50 ml @ As Directed STK-MED ONCE .ROUTE ; Start 05/06/20 at 08:23; Stop 05/06/20 at 08:23; Status DC Ringer's Solution 1,000 ml @ 1,000 mls/hr Q1H IV ; Start 05/06/20 at 09:20; Stop 05/06/20 at 10:19; Status DC Naloxone HCl (Narcan) 0.04 mg PRN Q1MIN PRN IV SEE COMMENTS; Start 05/06/20 at 09:30 Sodium Chloride (Normal Saline Flush) 10 ml QSHIFT PRN IV AFTER MEDS AND BLOOD DRAWS; Start 05/06/20 at 09:45 Oxytocin/Sodium Chloride 500 ml @ 62.5 mls/hr CONT PRN IV SEE I/O RECORD; Start 05/06/20 at 09:45; Stop 05/06/20 at 17:44; Status DC Acetaminophen (Tylenol) 650 mg PRN Q6HRS PRN PO MILD PAIN / TEMP > 100.3'F; Start 05/06/20 at 09:45 Ibuprofen (Motrin) 800 mg PRN Q8HRS PRN PO INFLAMMATION/PAIN PREVENTION Last administered on 05/06/20at 20:07; Start 05/06/20 at 09:45 Docusate Sodium (Colace) 100 mg PRN BID PRN PO HARD STOOL; Start 05/06/20 at 09:45 Magnesium Hydroxide (Milk Of Magnesia) 2,400 mg PRN DAILY PRN PO CONSTIPATION; Start 05/06/20 at 09:45 Al Hydroxide/Mg Hydroxide (Mylanta Plus Xs) 30 ml PRN Q4HRS PRN PO HEARTBURN / GAS; Start 7/28/20 at 09:45 Simethicone (Gas-X) 80 mg PRN AFTMEALHC PRN PO GAS / BLOATING; Start 05/06/20 at 09:45 Diphenhydramine HCl (Benadryl) 25 mg PRN Q6HRS PRN PO ITCHING; Start 05/06/20 at 09:45 Benzocaine (Americaine) 1 spray PRN QID PRN TP TOPICAL PAIN; Start 05/06/20 at 09:45 Phenyleph/Shark Oil/Min Oil/Petrol (Preparation H) 1 lili PRN QID PRN RC RECTAL PAIN; Start 05/06/20 at 09:45 Hydrocortisone (Cortaid) 1 lili PRN QID PRN TP PERINEAL PAIN; Start 05/06/20 at 09:45 Ferrous Sulfate (Feosol) 325 mg BIDWMEALS PO ; Start 05/07/20 at 08:00 Zolpidem Tartrate (Ambien) 5 mg PRN QHS PRN PO INSOMNIA, MAY REPEAT X1; Start 05/06/20 at 09:45 Info (Do NOT chart on this placeholder) 1 ea 1X PRN PRN MC SEE COMMENTS; Start 05/06/20 at 09:45 Info (Do NOT chart on this placeholder) 1 ea 1X PRN PRN MC SEE COMMENTS; Start 05/06/20 at 09:45 Oxycodone/ Acetaminophen (Percocet 5/325) 2 tab PRN Q4HRS PRN PO MODERATE PAIN, SEVERE PAIN; Start 05/06/20 at 09:45 Multivitamins (Thera M Plus) 1 tab DAILY PO ; Start 05/07/20 at 09:00 Active Scripts Active Reported Gummi Bear Multivitamin (Multivitamin) 1 Each Tab.chew 1 Each PO DAILY Exam Abd: soft, non tender, fundus firm Assessment PPD#1 s/p Plan of Care: Continue current Tx, Mgmt ROHIT DE JESUS Jr, MD May 07, 2020 07:25
[2020-05-07] MEDS ORDERED: FERROUS SULFATE 325 MG TABLET. PO SCH (08:00)
[2020-05-07] MEDS: DOCUSATE SODIUM 100 MG CAPSULE. PO PRN (08:22)
[2020-05-07] MEDS: IBUPROFEN 400 MG TABLET. PO PRN ×2 (08:24→15:43)
[2020-05-07] MEDS ORDERED: MULTIVITAMIN with MINERAL TABLET. PO SCH (09:00)
[2020-05-07 20:35] VITALS: BP 98/60
[2020-05-08] MEDS: DOCUSATE SODIUM 100 MG CAPSULE. PO PRN (00:23)
[2020-05-08] MEDS: IBUPROFEN 400 MG TABLET. PO PRN (00:23)
[2020-05-08 04:41] VITALS: BP 107/63
--- NOTE | 2020-05-08 09:07 | PDOC3 ---
OB DISCHARGE SUMMARY DATE OF ADMISSION: 05/06/30 DATE OF DISCHARGE: 05/08/20 REASON FOR ADMISSION: Onset of labor INTRAPARTUM PROCEDURES: Spontanous Vag Deliv DISCHARGE DIAGNOSIS: Term Delivered DISCHARGE INFORMATION: Activity (ad radha), Diet (regular ), Instructions (pelvic rest x 6 wks) HOSPITAL COURSE Term gestation delivered vaginally without complications. ROHIT DE JESUS Jr, MD May 08, 2020 09:07
[2020-05-08] MEDS ORDERED: IBUP-1027 PO (09:09)
--- NOTE | 2020-05-08 09:10 | DISCH ---
DISCHARGE INSTRUCTIONS Condition on Discharge Condition on Discharge: Stable Activity After Discharge Activity Instructions for Disc: Activity as tolerated Lifting Instructions after Dis: No heavy lifting Driving Instructions after Dis: Do not drive today Diet after Discharge Diet after Discharge: Regular Contacting the [facility] after DC Call your doctor for: Concerns you may have Follow-Up Follow up with: Dr. Gomes in 6 wks ROHIT GOMES Jr, MD May 08, 2020 09:10
[2020-05-08 13:01] VITALS: BP 114/69
== END 2020-05-08 15:26 | disposition home or self-care (01) | DRG 807 ==
LOC: 3 SO LND 06:24 → OBSVTOIN 07:37 → 3 NORTH 12:20
PROVIDERS: ADMIT Obstetrics & Gynecology; ATTEND Obstetrics & Gynecology
PROC: 10E0XZZ Delivery of Products of Conception, External Approach (ICD-10-PCS; principal; 2020-05-06)
PROC: 0KQM0ZZ Repair Perineum Muscle, Open Approach (ICD-10-PCS; 2020-05-06)
PROC: 3E0R3BZ Introduction of Anesthetic Agent into Spinal Canal, Percutaneous Approach (ICD-10-PCS; 2020-05-06)
PROC: 00HU33Z Insertion of Infusion Device into Spinal Canal, Percutaneous Approach (ICD-10-PCS; 2020-05-06)
DX: O70.1 Second degree perineal laceration during delivery (principal); Z37.0 Single live birth; Z3A.38 38 weeks gestation of pregnancy; Z20.828 Contact with and (suspected) exposure to other viral communicable diseases
CPT/HCPCS: 36415; 80307; 81001; 85025; 86592; 86850; 86900; 86901; 87086; 87426; G0379; J2540; J2590; J3010; J3490; J7060; J7120; G0378; U0003-CS

== ENCOUNTER 2020-10-28 14:42 | Emergency (ER) | payer OTHER ==
[~2020-10-28] VITALS: Ht 157.5 cm; Wt 77.0 kg
[~2020-10-28 14:42] MED LIST changes: +IBUP-1027 PO
[2020-10-28 15:30] VITALS: BP 94/60
[2020-10-28] MEDS ORDERED: CEPH500T PO (15:53)
[2020-10-28] MEDS ORDERED: MUPI22OI2 TP (15:53)
--- NOTE | 2020-10-28 15:53 | ED.ADGEN ---
Past Medical History Past Medical History: No Pertinent History Past Surgical History: No Surgical History Smoking Status: Unknown if ever smoked Alcohol Use: None Drug Use: None General Adult EDM: Chief Complaint: LOWER EXTREMITY SWELLING HPI: HPI: Patient is a 24 year old female who presents emergency department with complaints of an area of redness and swelling to her right lateral ankle. Patient states she noticed the area 3 days ago. She denies any itching from the site. Patient denies any bleeding or drainage. She states she noticed that there was a scabbed area to the middle of it. She denies any numbness, tingling, or weakness of the affected extremity. The patient denies any fever body aches, or fatigue. She currently denies any pain. Review of Systems: Review of Systems: Complete ROS is negative unless otherwise noted in HPI. Allergies: Allergies: Allergies Coded Allergies Type Severity Reaction Last Updated Verified No Known Drug Allergies 02/12/14 No Physical Exam: PE: See Above Constitutional: Well developed, well nourished, no acute distress, non-toxic appearance. [] HENT: Normocephalic, atraumatic, bilateral external ears normal, nose normal. [] Eyes: PERRLA, EOMI, conjunctiva normal, no discharge. [] Neck: Normal range of motion, no stridor. [] Cardiovascular:Heart rate regular rhythm Lungs & Thorax: Respirations even and unlabored, no retractions, no respiratory distress Skin: 3 cm diameter localized area of erythema, swelling, and warmth to the right lower lateral ankle with a 0.5 cm centralized scabbed area, no streaking up the leg, consistent with infected insect bite Extremities: Right ankle: no bony tenderness, no deformity, no cyanosis, ROM intact Neurologic: Alert and oriented X 3, no focal deficits noted. [] Psychologic: Affect normal, judgement normal, mood normal. [] Current Patient Data: Vital Signs: Vital Signs Date Time Temp Pulse Resp B/P (MAP) Pulse Ox O2 Delivery O2 Flow Rate FiO2 10/28/20 15:19 97.3 72 18 94/60 (71) 98 Room Air 97.3 EKG: EKG: [] Heart Score: Risk Factors: Risk Factors: DM, Current or recent (<one month) smoker, HTN, HLP, family history of CAD, obesity. Risk Scores: Score 0 - 3: 2.5% MACE over next 6 weeks - Discharge Home Score 4 - 6: 20.3% MACE over next 6 weeks - Admit for Clinical Observation Score 7 - 10: 72.7% MACE over next 6 weeks - Early Invasive Strategies Radiology/Procedures: Radiology/Procedures: [] Course & Med Decision Making: Course & Med Decision Making Pertinent Labs and Imaging studies reviewed. (See chart for details) [] Dragon Disclaimer: Dragon Disclaimer: This electronic medical record was generated, in whole or in part, using a voice recognition dictation system. Departure Departure Impression: Primary Impression: Infected insect bite of right ankle Disposition: 01 DC HOME SELF CARE/HOMELESS Condition: STABLE Referrals: NO PCP (PCP) Patient Instructions: Cellulitis, [id number], Insect Bite, [id number] Additional Instructions: Fill the prescription(s) and use as directed. You may take tylenol or ibuprofen as needed for pain. Apply warm, moist packs to the area to help decrease discomfort. Follow up with your primary care doctor or return to the ER in 48 hours to have wound rechecked. Return to the ER sooner if your symptoms worsen or fever develops. Scripts Mupirocin (MUPIROCIN OINTMENT) 22 Gm Oint...g. 1 JUAN JOSÉ TP TID for WOUND CARE for 7 Days, #1 TUBE 0 Refills Prov: ARVIN DAVIES [employer] 10/28/20 Cephalexin (CEPHALEXIN) 500 Mg Tablet 1 TAB PO QID, #40 TAB 0 Refills Prov: ARVIN DAVIES [employer] 10/28/20 Problem Qualifiers Primary Impression: Infected insect bite of right ankle Encounter type: initial encounter Qualified Codes: S90.561A - Insect bite (nonvenomous), right ankle, initial encounter; L08.9 - Local infection of the skin and subcutaneous tissue, unspecified; W57.XXXA - Bitten or stung by nonvenomous insect and other nonvenomous arthropods, initial encounter ARVIN DAVIES [employer] Oct 28, 2020 15:53
== END 2020-10-28 16:10 | disposition home or self-care (01) ==
LOC: ER 14:42
DX: S90.561A Insect bite (nonvenomous), right ankle, initial encounter (principal); L08.9 Local infection of the skin and subcutaneous tissue, unspecified; W57.XXXA Bitten or stung by nonvenomous insect and other nonvenomous arthropods, initial encounter; Y93.89 Activity, other specified; Y92.89 Other specified places as the place of occurrence of the external cause; Y99.8 Other external cause status
CPT/HCPCS: 99283